=== PATIENT | male | born 1975 | race Caucasian/White ===

== ENCOUNTER → 2021-02-19 14:07 | Outpatient (CLI) | payer OTHER, SELFPAY ==
--- NOTE | ~2021-02-19 | XR_ITS ---
XR chest 2V DATE: 02/19/2021 14:17 INDICATION: Moderate persistent asthma TECHNIQUE: 2 views COMPARISON: None FINDINGS: Heart size is within normal range. No pulmonary infiltrate or consolidation, pleural effusi on or pulmonary mass or pneumothorax. IMPRESSION: No active cardiopulmonary disease Reviewed, dictated and finalized at location A.
== END ==
DX: J45.40 Moderate persistent asthma, uncomplicated (principal)
CPT/HCPCS: 71046